=== PATIENT | female | born 1985 | race African-American/Black ===

== ENCOUNTER 2017-02-03 15:06 | Emergency (ER) | payer MEDICAID ==
[~2017-02-03] VITALS: Ht 180.3 cm; Wt 113.6 kg
[~2017-02-03 15:06] MED LIST: KEPPRA 500MG500 MG PO; KLONOPIN WAFER0.5 MG PO
[2017-02-03 15:07] VITALS: TEMP 98.7
[2017-02-03] MEDS ORDERED: KLONOPIN 1MG1 MG PO (15:20)
[2017-02-03] MEDS ORDERED: MULTI VITAMINS1 TAB PO (15:22)
[2017-02-03] MEDS ORDERED: MINIPRESS2 MG PO (15:22)
[2017-02-03 16:24] LABS: CALCIUM 9.7 mg/dL (8.4-10.2); CREATININE, serum 0.77 mg/dL (0.52-1.25); POTASSIUM 4.1 mmol/L (3.4-5.0)
[2017-02-03] MEDS ORDERED: NORCO 325 MG-51 TAB PO (18:06)
[2017-02-03 19:09] VITALS: BP 116/68; PULSE 82
== END 2017-02-03 19:14 | disposition home or self-care (01) ==
LOC: COL.ER 15:06
PROVIDERS: Emergency Medicine
DX: G40.909 Epilepsy, unspecified, not intractable, without status epilepticus (principal)

== ENCOUNTER 2017-02-28 17:41 | Emergency (ER) | payer MEDICAID ==
[~2017-02-28] VITALS: Ht 177.8 cm; Wt 115.5 kg
[~2017-02-28 17:41] MED LIST changes: +KLONOPIN 1MG1 MG PO; +MINIPRESS2 MG PO; +MULTI VITAMINS1 TAB PO; +NORCO 325 MG-51 TAB PO
[2017-02-28 17:43] VITALS: TEMP 99.4
[2017-02-28] MEDS ORDERED: PREDNISONE20 MG PO (17:50)
[2017-02-28 18:25] LABS: BASO % 0.5 % (0.0-2.0); EOS # 0.2 (0.0-0.7); EOS % 2.6 % (0-4.0); GRAN # 3.8 (1.4-6.5); GRAN % 48.9 % (42.2-75.2); LYMPH % 39.2 % (20.0-51.0); MEAN CELL VOLUME 87 fl (80.0-100.0); MEAN CORPUSCULAR HGB CONC 33 g/dl (33.0-37.0); MEAN PLATELET VOLUME 10.2 fl (7.4-10.4); MONO # 0.7 (0.1-0.6); MONO % 8.5 % (1.7-9.3); PLATELET COUNT 266 K/mm3 (130-400); RED BLOOD COUNT 3.98 M/mm3 (4.10-5.30); REDCELL DISTRIBUTION WIDTH-CV 15.9 % (11.5-14.5); WHITE BLOOD COUNT 7.7 K/mm3 (4.8-10.8)
[2017-02-28 18:27] LABS: HEMATOCRIT 34.8 % (37.0-47.0); HEMOGLOBIN 11.6 g/dl (12.5-16.0); MEAN CORPUSCULAR HEMOGLOBIN 29 pg (27.0-31.0)
[2017-02-28 18:37] LABS: ADJUSTED CALCIUM 9.5 mg/dL (8.4-10.2); ALANINE AMINOTRANSFERASE 31 U/L (9-52); ALBUMIN 4.2 gm/dL (3.5-5.0); ALKALINE PHOSPHATASE 51 U/L (50-136); ANION GAP 11 mmol/L (7-16); BILIRUBIN,TOTAL 0.4 mg/dL (0.0-1.0); BLOOD UREA NITROGEN 11 mg/dL (7-17); CALCIUM 9.7 mg/dL (8.4-10.2); CARBON DIOXIDE 25 mmol/L (22-30); CHLORIDE 102 mmol/L (98-107); CREATININE, serum 0.77 mg/dL (0.52-1.25); GLUCOSE 113 mg/dL (74-106); POTASSIUM 3.5 mmol/L (3.4-5.0); SODIUM 138 mmol/L (137-145); TOTAL PROTEIN 7.7 gm/dL (6.4-8.2)
[2017-02-28 18:38] LABS: C-REACTIVE PROTEIN < 0.5 mg/dL (0.0-0.9)
[2017-02-28 18:49] LABS: PROLACTIN 5.9 ng/mL (3.0-18.6)
[2017-02-28 19:40] VITALS: BP 144/82; PULSE 97
== END 2017-02-28 19:40 | disposition home or self-care (01) ==
LOC: COL.ER 17:41
PROVIDERS: Family Medicine
DX: G40.909 Epilepsy, unspecified, not intractable, without status epilepticus (principal); R51 Headache; F32.9 Major depressive disorder, single episode, unspecified; F43.10 Post-traumatic stress disorder, unspecified
CPT/HCPCS: J1200; J1885

== ENCOUNTER 2017-03-13 12:38 | Emergency (ER) | payer MEDICAID ==
[~2017-03-13] VITALS: Ht 177.8 cm; Wt 114.5 kg
[~2017-03-13 12:38] MED LIST changes: +PREDNISONE20 MG PO
[2017-03-13 12:40] VITALS: BP 151/86; PULSE 120; TEMP 98.7
[2017-03-13] MEDS ORDERED: NORCO 325 MG-51 TAB PO (13:51)
== END 2017-03-13 13:56 | disposition home or self-care (01) ==
LOC: COL.ER 12:38
DX: M25.532 Pain in left wrist (principal); M79.632 Pain in left forearm; W18.49XA Other slipping, tripping and stumbling without falling, initial encounter; W22.01XA Walked into wall, initial encounter; Y92.89 Other specified places as the place of occurrence of the external cause; G40.909 Epilepsy, unspecified, not intractable, without status epilepticus; F32.9 Major depressive disorder, single episode, unspecified; Z87.81 Personal history of (healed) traumatic fracture

== ENCOUNTER 2018-08-29 18:14 | Emergency (ER) | payer BC ==
[~2018-08-29] VITALS: Ht 177.8 cm; Wt 125.5 kg
[2018-08-29 18:59] LABS: BASO # 0.1 (0.0-0.2); BASO % 0.6 % (0.0-2.0); EOS # 0.2 (0.0-0.7); EOS % 3.1 % (0-4.0); GRAN % 50.4 % (42.2-75.2); HEMATOCRIT 39.6 % (37.0-47.0); HEMOGLOBIN 13.4 g/dl (12.5-16.0); LYMPH # 2.8 (1.2-3.4); LYMPH % 35.8 % (20.0-51.0); MEAN CELL VOLUME 90 fl (80.0-100.0); MEAN CORPUSCULAR HEMOGLOBIN 31 pg (27.0-31.0); MEAN CORPUSCULAR HGB CONC 34 g/dl (33.0-37.0); MEAN PLATELET VOLUME 11.3 fl (7.4-10.4); MONO # 0.8 (0.1-0.6); MONO % 9.5 % (1.7-9.3); PLATELET COUNT 266 K/mm3 (130-400); REDCELL DISTRIBUTION WIDTH-CV 14.5 % (11.5-14.5)
[2018-08-29 19:09] LABS: ALBUMIN 3.9 gm/dL (3.5-5.0); BILIRUBIN,TOTAL 0.2 mg/dL (0.0-1.0); CALCIUM 8.9 mg/dL (8.4-10.2); CREATININE, serum 0.64 mg/dL (0.52-1.25); POTASSIUM 3.8 mmol/L (3.4-5.0); TOTAL PROTEIN 7.5 gm/dL (6.4-8.2)
[2018-08-29 19:32] VITALS: BP 146/97; PULSE 98; TEMP 98.5
[2018-08-29] MEDS ORDERED: SEROQUEL50 MG PO (20:21)
[2018-08-29] MEDS ORDERED: ADDERALL20 MG PO (20:21)
== END 2018-08-29 20:21 | disposition home or self-care (01) ==
LOC: COL.ER 18:14
PROVIDERS: Emergency Medicine
DX: S50.12XA Contusion of left forearm, initial encounter (principal); G89.29 Other chronic pain; M79.602 Pain in left arm; G40.909 Epilepsy, unspecified, not intractable, without status epilepticus; W06.XXXA Fall from bed, initial encounter; Y92.009 Unspecified place in unspecified non-institutional (private) residence as the place of occurrence of the external cause
CPT/HCPCS: J1885; J7030

== ENCOUNTER 2019-10-03 13:58 | Emergency (ER) | payer BC ==
[~2019-10-03] VITALS: Ht 177.8 cm; Wt 110.4 kg
[~2019-10-03 13:58] MED LIST changes: +ADDERALL20 MG PO; +SEROQUEL50 MG PO
[2019-10-03 14:03] VITALS: BP 130/86; TEMP 97.4
[2019-10-03 14:56] LABS: BASO # 0.1 (0.0-0.2); BASO % 0.8 % (0.0-2.0); EOS # 0.1 (0.0-0.7); EOS % 2.4 % (0-4.0); GRAN # 2.6 (1.4-6.5); GRAN % 43.8 % (42.2-75.2); HEMOGLOBIN 12.3 g/dl (12.5-16.0); LYMPH # 2.6 (1.2-3.4); LYMPH % 43.1 % (20.0-51.0); MEAN CELL VOLUME 92 fl (80.0-100.0); MEAN CORPUSCULAR HEMOGLOBIN 30 pg (27.0-31.0); MEAN CORPUSCULAR HGB CONC 32 g/dl (33.0-37.0); MEAN PLATELET VOLUME 10.7 fl (7.4-10.4); MONO # 0.6 (0.1-0.6); MONO % 9.6 % (1.7-9.3); PLATELET COUNT 304 K/mm3 (130-400); RED BLOOD COUNT 4.15 M/mm3 (4.10-5.30); REDCELL DISTRIBUTION WIDTH-CV 14.8 % (11.5-14.5)
[2019-10-03 15:08] LABS: ALANINE AMINOTRANSFERASE 22 U/L (9-52); ALBUMIN 4.3 gm/dL (3.5-5.0); ALKALINE PHOSPHATASE 60 U/L (50-136); ANION GAP 10 mmol/L (7-16); AST,SGOT 17 U/L (15-37); BILIRUBIN,TOTAL 0.2 mg/dL (0.0-1.0); BLOOD UREA NITROGEN 13 mg/dL (7-17); CALCIUM 9.5 mg/dL (8.4-10.2); CARBON DIOXIDE 26 mmol/L (22-30); CHLORIDE 104 mmol/L (98-107); CREATININE, serum 0.58 (0.52-1.25); GLUCOSE 328 mg/dL (74-106); POTASSIUM 4.1 mmol/L (3.4-5.0); SODIUM 139 mmol/L (137-145); TOTAL PROTEIN 7.7 gm/dL (6.4-8.2)
[2019-10-03 15:11] LABS: ALCOHOL(ethanol),MEDICAL < 10 mg/dL
[2019-10-03] MEDS ORDERED: SOMA250 MG PO (15:57)
[2019-10-03 16:23] VITALS: PULSE 84
== END 2019-10-03 16:25 | disposition left against medical advice (07) ==
LOC: COL.ER 13:58
PROVIDERS: Physician Assistant
DX: G40.909 Epilepsy, unspecified, not intractable, without status epilepticus (principal); F43.10 Post-traumatic stress disorder, unspecified; E11.9 Type 2 diabetes mellitus without complications; Z79.84 Long term (current) use of oral hypoglycemic drugs; Z90.89 Acquired absence of other organs
CPT/HCPCS: J1885; J2060; J2405; J7030